=== PATIENT | male | born 1955 | race Caucasian/White ===

== ENCOUNTER 2017-05-09 18:56 | Emergency (ER) | payer BC ==
[2017-05-09 19:11] VITALS: TEMP 98.6; BMI 46.6
--- NOTE | 2017-05-09 19:27 | PDOC ---
History of Present Illness - General History Source: Patient Exam Limitations: No Limitations - History of Present Illness Initial Comments: 05/09/17 19:52 The patient is a 61 year old male with past medical history of hypertension, hyperlipidemia, diabetes, and Afib (on Xarelto), who presents to the ED with complaints of persistent cough for two weeks. The patient states that the cough began as dry, but today he began to spit up large sizes of white sputum. The patient complains of some congestion in his chest as well. He denies any shortness of breath or chest pain. While in the ED, the patients blood pressure was noted to be very high. He denies any fevers, chills, nausea, vomiting, diarrhea, or urinary symptoms. PCP: Bobby Almendarez Qa Software Tester: Rhianna Buck Stage Driver: Laureano Farr Strategic Account Manager: Levy Moffett <Aurora Redd - Last Filed: 05/09/17 19:51> <Rita Guy - Last Filed: 05/10/17 02:10> - General Chief Complaint: Shortness of Breath Stated Complaint: COUGH,SOB Time Seen by Provider: 05/09/17 19:24 Past History <Aurora Redd - Last Filed: 05/09/17 19:51> - Past Medical History Anemia: No Asthma: No Cancer: No Cardiac Disorders: Yes (ATRIAL FIBRILLATION) CVA: No COPD: No CHF: No Dementia: No Diabetes: Yes GI Disorders: No Disorders: No HTN: Yes Hypercholesterolemia: Yes Liver Disease: Yes (HEMACHROMATOSIS) Seizures: No Thyroid Disease: No - Surgical History Abdominal Surgery: No Appendectomy: No Cardiac Surgery: Yes (PACEMAKER IMPLANTED) Cholecystectomy: No Lung Surgery: No Neurologic Surgery: No Orthopedic Surgery: No - Psycho/Social/Smoking Cessation Hx Anxiety: No Suicidal Ideation: No Smoking History: Never smoked Have you smoked in the past 12 months: No Information on smoking cessation initiated: No Hx Alcohol Use: No Drug/Substance Use Hx: No Substance Use Type: Alcohol Hx Substance Use Treatment: No <Rita Guy - Last Filed: 05/10/17 02:10> - Past Medical History Allergies/Adverse Reactions: Allergies Allergy/AdvReac Type Severity Reaction Status Date / Time codeine [Codeine] AdvReac Intermediate Vomiting Verified 07/06/16 02:19 HORSE SERUM Allergy Unknown Uncoded 03/20/14 08:01 Home Medications: Ambulatory Orders Atorvastatin Ca [Lipitor -] 40 mg PO HS 03/20/14 Glimepiride 2 mg PO DAILY 03/20/14 Metoprolol Succinate [Toprol Xl] 100 mg PO DAILY 03/20/14 Rivaroxaban [Xarelto -] 20 mg PO DAILY 03/20/14 Valsartan [Diovan] 80 mg PO DAILY 03/20/14 Venlafaxine HCl ER [Effexor Xr -] 75 mg PO DAILY 03/20/14 Liraglutide [Victoza -] 1.8 mg SQ DAILY@0700 05/09/17 Metoprolol Succinate [Toprol Xl] 50 mg PO HS 05/09/17 Review of Systems - Review of Systems Able to Perform ROS?: Yes Comments:: 05/09/17 19:52 CONSTITUTIONAL: Absent: fever, chills, diaphoresis, generalized weakness, malaise, loss of appetite HEENT: Absent: rhinorrhea, nasal congestion, throat pain, throat swelling, difficulty swallowing, mouth swelling, ear pain, eye pain, visual Changes CARDIOVASCULAR: Absent: chest pain, syncope, palpitations, irregular heart rate, lightheadedness , peripheral edema RESPIRATORY: Present: cough, chest congestion Absent: dyspnea with exertion, orthopnea, wheezing, stridor, hemoptysis GASTROINTESTINAL: Absent: abdominal pain, abdominal distension, nausea, vomiting, diarrhea, constipation, melena, hematochezia GENITOURINARY: Absent: dysuria, frequency, urgency, hesitancy, hematuria, flank pain, genital pain MUSCULOSKELETAL: Absent: myalgia, arthralgia, joint swelling SKIN: Absent: rash, itching, pallor HEMATOLOGIC/IMMUNOLOGIC: Absent: easy bleeding, easy bruising, lymphadenopathy, frequent infections ENDOCRINE: Absent: unexplained weight gain, unexplained weight loss, heat intolerance, cold intolerance NEUROLOGIC: Absent: headache, focal weakness or paresthesias, dizziness, unsteady gait, seizure, mental status changes, bladder or bowel incontinence PSYCHIATRIC: Absent: anxiety, depression, suicidal or homicidal ideation, hallucinations. All Other Systems: Reviewed and Negative <Aurora Redd - Last Filed: 05/09/17 19:51> *Physical Exam - Vital Signs Last Vital Signs Temp Pulse Resp BP Pulse Ox 98.6 F 99 H 22 194/116 98 05/09/17 18:56 05/09/17 18:56 05/09/17 18:56 05/09/17 18:56 05/09/17 18:56 - Physical Exam Comments: 05/09/17 19:56 GENERAL: Morbidly obese. Awake and alert. No acute distress. HEENT: Normocephalic, atraumatic. PERRLA, EOMI. No conjunctival pallor. Sclera are non- icteric. Moist mucous membranes. Oropharynx is clear. NECK: Supple. Full ROM. No JVD. Carotid pulses 2+ and symmetric, without bruits. No thyromegaly. No lymphadenopathy. CARDIOVASCULAR: Regular rate and rhythm. No murmurs, rubs, or gallops. Distal pulses are 2+ and symmetric. PULMONARY: No evidence of respiratory distress. Lungs clear to auscultation bilaterally. No wheezing, rales or rhonchi. ABDOMINAL: Soft. Non-tender. Non-distended. No rebound or guarding. No organomegaly. Normoactive bowel sounds. MUSCULOSKELETAL Normal range of motion at all joints. No bony deformities or tenderness. No CVA tenderness. EXTREMITIES: No cyanosis. No clubbing. No edema. No calf tenderness. SKIN: Warm and dry. Normal capillary refill. No rashes. No jaundice. NEUROLOGICAL: Alert, awake, appropriate. Cranial nerves 2-12 intact. No deficits to light touch and temperature in face, upper extremities and lower extremities. No motor deficits in the in face, upper extremities and lower extremities. Normoreflexic in the upper and lower extremities. Normal speech. Toes are down-going bilaterally. Gait is normal without ataxia. PSYCHIATRIC: Cooperative. Good eye contact. Appropriate mood and affect. <Aurora Redd - Last Filed: 05/09/17 19:51> - Vital Signs Last Vital Signs Temp Pulse Resp BP Pulse Ox 98.6 F 99 H 22 194/116 98 05/09/17 18:56 05/09/17 18:56 05/09/17 18:56 05/09/17 18:56 05/09/17 18:56 <Rita Guy - Last Filed: 05/10/17 02:10> Heart Score/ECG Review - ECG Intrepretation Comment:: 05/09/17 19:57 ECG obtained at 19:55 Undetermined rhythm, 127 bpm <Aurora Redd - Last Filed: 05/09/17 19:51> ED Treatment Course - Medications Given in the ED: ED Medications Discontinued Medications Generic Name Dose Route Start Last Admin Trade Name Ridge PRN Reason Stop Dose Admin Metoprolol Succinate 100 mg 05/09/17 19:39 05/09/17 19:49 Toprol Xl - PO 05/09/17 19:40 100 mg ONCE ONE Administration Nitroglycerin 0.8 mg 05/09/17 19:40 05/09/17 19:42 Nitrostat - SL 05/09/17 19:41 0.8 mg ONCE ONE Administration <Aurora Redd - Last Filed: 05/09/17 19:51> - LABORATORY CBC & Chemistry Diagram: 05/09/17 20:00 05/09/17 20:00 - RADIOLOGY Radiology Studies Ordered: Category Date Time Status CHEST PA & LAT [RAD] Stat Radiology 05/09/17 19:24 Ordered <Rita Guy - Last Filed: 05/10/17 02:10> Medical Decision Making - Medical Decision Making 05/09/17 20:19 Pt is morbidly obese and comes in with HTN and chest tightness. He tells me that he has cough and caught a cold from his girlfriend's grandchild. Pt took mucinex and he coughed up white sputum, quarter sized and felt better today. Pt states that today while he was walking around he developed chest tightness MSCP. Pt has angina. He has a hx of afib and he is in rapid afib at this time with pacemaker spikes on EKG. 05/10/17 02:03 I spoke to Pt's ball point splitter Chika's partner Dr. Jenkins, who knows patient and agrees that he may be followed as an outpatient and asks that pt calls the office on Thursday to make an appointment for or Thu. He feels that pt's pain may be due to the increased BP and the exertion. We discussed the potential need for pt to have a cardiac cath. Pt is feeling better and his vitals are improved and his labs are normal, except for elevated glucose and cpk of 300s. <Rita Guy - Last Filed: 05/10/17 02:10> *DC/Admit/Observation/Transfer - Attestations Scribe Attestion: 05/09/17 19:57 Documentation prepared by Aurora Redd, acting as medical cash poster for Rita Guy MD. <Aurora Redd - Last Filed: 05/09/17 19:51> - Discharge Dispostion Admit: No <Rita Guy - Last Filed: 05/10/17 02:10> Diagnosis at time of Disposition: Angina of effort, Atrial fibrillation, rapid - Discharge Dispostion Disposition: HOME Condition at time of disposition: Improved - Referrals Referrals: Laureano Farr MD [Staff Physician] - - Patient Instructions Printed Discharge Instructions: DI for Angina, DI for Atrial Fibrillation, DI for Cardiac Catheterization Additional Instructions: CALL MOBILITY ENGINEER ON THURSDAY
[2017-05-09] MEDS ORDERED: METOPROLOL SUCCINATE 50 MG TAB.SR.24H (FP) PO ONE (19:39)
[2017-05-09] MEDS ORDERED: NITROGLYCERIN SUBLINGUAL 1/150 0.4 MG TAB SL ONE (19:40)
[2017-05-09] MEDS ORDERED: METOPROLOL SUCCINATE 50 MG TAB.SR.24H (FP) ONE (19:46)
[2017-05-09 19:55] LABS: PH,URINE 5.5 (4.5-8); URINE APPEARANCE Clear; URINE BILIRUBIN Negative (NEGATIVE); URINE BLOOD Negative (NEGATIVE); URINE COLOR YELLOW; URINE GLUCOSE (UA) 2+ (NEGATIVE); URINE KETONE Negative (NEGATIVE); URINE LEUK ESTERASE Negative (NEGATIVE); URINE NITRITE Negative (NEGATIVE); URINE PROTEIN 1+ (NEGATIVE); URINE UROBILINOGEN 0.2 (0.2-1.0)
[2017-05-09 20:20] LABS: BASOPHIL 0.8 % (0-2.0); MCH 33.1 pg (25.7-33.7); MCHC 34.9 g/dl (32.0-35.9); MEAN CELL VOLUME 94.8 fl (80-96); MEAN PLT VOLUME 9.2 fl (7.5-11.1); NEUTROPHILS 61.3 % (42.8-82.8); PLATELET COUNT 216 K/MM3 (134-434); RDW 12.4 % (11.9-15.9); WHITE BLOOD COUNT 10.1 K/mm3 (4.0-10.8)
[2017-05-09 20:22] VITALS: BP 126/83; PULSE 109
[2017-05-09 20:31] LABS: ALBUMIN 4.3 g/dl (3.5-5.0); ALK PHOS 122 U/L (32-92); ANION GAP 9 (8-16); BILIRUBIN,TOTAL 0.5 mg/dl (0.2-1.0); CALCIUM 9.3 mg/dl (8.4-10.2); CO2 25 mmol/L (22-28); SGOT/AST 26 U/L (10-42); SGPT/ALT 38 U/L (10-40); TOT PROT 7.3 g/dl (6.4-8.3)
[2017-05-09 20:33] LABS: GLUCOSE,RANDOM 305 mg/dl (74-106)
[2017-05-09 20:34] LABS: CPK 313 IU/L (39-308)
[2017-05-09 20:38] LABS: TROPONIN I (DFP) < 0.03 ng/ml (0.03-0.50)
[2017-05-09 20:40] LABS: URINE RBC 0-1 /hpf (0-3); URINE WBC NONE SEEN (3-5)
--- NOTE | 2017-05-12 10:31 | EKG ---
Test Reason : Blood Pressure : / mmHG Vent. Rate : 127 BPM Atrial Rate : 136 BPM P-R Int : 000 ms QRS Dur : 092 ms QT Int : 350 ms P-R-T Axes : 000 047 003 degrees QTc Int : 508 ms Demand V pacing Underlying afib WHEN COMPARED WITH ECG OF 25-SEP-2008 13:03, More pacing Confirmed by MD MENDOZA MARJORY ([id number]) on 05/12/2017 10:31:29 AM Referred By: SLOANE Confirmed By:CHRISTINA MENDOZA MD
== END 2017-05-09 21:40 | disposition home or self-care (01) ==
LOC: FER 18:56
DX: I48.91 Unspecified atrial fibrillation (principal); I20.8 Other forms of angina pectoris; I10 Essential (primary) hypertension; E78.5 Hyperlipidemia, unspecified; E11.9 Type 2 diabetes mellitus without complications; Z79.01 Long term (current) use of anticoagulants; Z75.0 Medical services not available in home; Z88.6 Allergy status to analgesic agent; Z79.84 Long term (current) use of oral hypoglycemic drugs
CPT/HCPCS: 36415; 71020-TC; 80053; 81003; 81015; 82553; 84484; 85025; 93005; 99283-25

== ENCOUNTER 2018-03-21 06:51 | Emergency (ER) | payer BC ==
[2018-03-21 07:01] VITALS: BP 154/84; PULSE 94; TEMP 98.9; BMI 46.6
[2018-03-21] MEDS ORDERED: ALBUTEROL SO4 2.5/IPRATROPIUM 0.5 INH SOL 3 ML VIAL.NEB. NEB ONE ×3 (07:12→08:14)
--- NOTE | 2018-03-21 07:25 | PDOC ---
History of Present Illness - General Chief Complaint: Respiratory Stated Complaint: COUGH/SINUS CONGESTION Time Seen by Provider: 03/21/18 07:19 History Source: Patient Exam Limitations: No Limitations - History of Present Illness Initial Comments: 03/21/18 07:22 62 yo M h/o htn ,afib DM , pacemaker, obesity with prior wheezing/ ? asthma ( no tobacco history) here today c/o one week of cough, congestion sob and nasal congestion. feels facial sinus pressure. pt was seen by his pcp 1 week ago and started on cefdnir, finished one week, now still feels sob. pt states wheezing sob is worse with hot air exposure and weather changes. no re recent steroids or bronchodilators. not using a nasal steroid at all. no f/c no n/v no chest pain. no leg swelling. 03/21/18 07:45 03/21/18 07:57 Past History - Past Medical History Allergies/Adverse Reactions: Allergies Allergy/AdvReac Type Severity Reaction Status Date / Time codeine [Codeine] AdvReac Intermediate Vomiting Verified 03/05/16 02:19 HORSE SERUM Allergy Unknown Uncoded 03/20/14 08:01 Home Medications: Ambulatory Orders Atorvastatin Ca [Lipitor -] 40 mg PO HS 03/20/14 Glimepiride 4 mg PO DAILY 03/20/14 Metoprolol Succinate [Toprol Xl] 100 mg PO DAILY 03/20/14 Rivaroxaban [Xarelto -] 20 mg PO HS 03/20/14 Valsartan [Diovan] 80 mg PO DAILY 03/20/14 Venlafaxine HCl ER [Effexor Xr -] 75 mg PO DAILY 03/20/14 Liraglutide [Victoza -] 1.8 mg SQ DAILY@0700 05/09/17 Metoprolol Succinate [Toprol Xl] 100 mg PO HS 05/09/17 Albuterol Sulfate Inhaler - [Ventolin HFA Inhaler -] 2 inh PO Q4H PRN #1 inh Cefuroxime Axetil [Ceftin -] 500 mg PO Q12H 03/21/18 Fluticasone Prop 0.05% Nasal [Flonase -] 1 spray NS DAILY #1 bot MDD 1 03/21/18 Metformin HCl [Metformin HCl ER] 1,000 mg PO HS 03/21/18 Ranolazine [Ranexa] 500 mg PO BID 03/21/18 Anemia: No Asthma: No Cancer: No Cardiac Disorders: Yes (ATRIAL FIBRILLATION) CVA: No COPD: No CHF: No Dementia: No Diabetes: Yes GI Disorders: No Disorders: No HTN: Yes Hypercholesterolemia: Yes Liver Disease: Yes (HEMACHROMATOSIS) Seizures: No Thyroid Disease: No - Surgical History Abdominal Surgery: No Appendectomy: No Cardiac Surgery: Yes (PACEMAKER IMPLANTED) Cholecystectomy: No Lung Surgery: No Neurologic Surgery: No Orthopedic Surgery: No - Suicide/Smoking/Psychosocial Hx Smoking History: Never smoked Have you smoked in the past 12 months: No Hx Alcohol Use: No Drug/Substance Use Hx: No Substance Use Type: Alcohol Hx Substance Use Treatment: No Review of Systems - Review of Systems Constitutional: No: Chills, Diaphoresis, Fever Respiratory: Yes: Cough, Shortness of Breath, Wheezing Cardiac (ROS): No: Chest Pain : No: Burning, Dysuria Musculoskeletal: No: Back Pain, Gout, Joint Pain Integumentary: No: Bruising, Change in Color Neurological: No: Headache Endocrine: No: Excessive Sweating All Other Systems: Reviewed and Negative *Physical Exam - Vital Signs Last Vital Signs Temp Pulse Resp BP Pulse Ox 98.9 F 94 H 16 154/84 96 03/21/18 06:55 03/21/18 06:55 03/21/18 06:55 03/21/18 06:55 03/21/18 06:55 - Physical Exam General Appearance: Yes: Nourished HEENT: positive: Normal Voice, Other (nasal congestion. boggy mucousa turbinate inflammation). negative: Tonsillar Exudate, Tonsillar Erythema Neck: positive: Trachea midline Respiratory/Chest: positive: Wheezing (bilateral wheezing faint, normal air flow. normal effort) Cardiovascular: positive: Regular Rhythm, Regular Rate, S1, S2 Gastrointestinal/Abdominal: positive: Normal Bowel Sounds, Flat. negative: Increased Bowel Sounds Musculoskeletal: positive: Normal Inspection. negative: CVA Tenderness Extremity: positive: Normal Capillary Refill, Normal Inspection, Normal Range of Motion Integumentary: positive: Normal Color, Dry, Warm Neurologic: positive: Fully Oriented, Alert, Normal Mood/Affect Heart Score/ECG Review #1 General ECG Interpretation: Normal Rate (96), Normal Intervals, No acute ischemic changes (TWI III only) Compared to previous ECG there are: Other (atrial fibrillation) Medical Decision Making - Medical Decision Making 03/21/18 07:26 62-year-old male with shortness of breath nasal congestion sinus pressure and bronchospasm. Likely related to ALLERGIC bronchospasm and rhinitis/sinusitis. Patient is already taking antibiotics. We'll likely treat with bronchodilators and possible steroids as well as inhaled nasal steroids just Flonase or Rhinocort recommend ALLERGY medication such as Claritin or Zyrtec patient taking will repeat chest x-ray to rule out any complications from prior pneumonia such as effusion or other pulmonary process screening EKG 03/21/18 07:45 CXR with increased bronchial markings. no infiltrate. comparison 08/2017. given neb, pt improved. allison dc with nebs, steroids, and pulmonary followup. 03/21/18 07:58 pt feels much improved following neb. has had high running sugars in am recently. therefore will hold on oral steroids. told to followup with dr. Ernst. was given number for [place] hand dr. Espinal, will serena to followup. per pt , has recently had a clean cath one year ago no h/o leg swelling or cad. *DC/Admit/Observation/Transfer Diagnosis at time of Disposition: Allergic rhinitis, Bronchitis - Discharge Dispostion Condition at time of disposition: Improved - Prescriptions Prescriptions: Albuterol Sulfate Inhaler - [Ventolin HFA Inhaler -] 2 inh PO Q4H PRN #1 inh PRN Reason: Wheezing - Referrals Referrals: Bobby Almendarez MD [Staff Physician] - - Patient Instructions Printed Discharge Instructions: DI for Acute Bronchitis, Sinusitis Additional Instructions: use flonase spray intranasally daily to help with sinus pressure and fullness. you can take zyrtec 5mg or claritin 5mg to help with allergic triggers. you should also use albuterol inhaler 2 puffs every 4 hours as needed for wheezing or cough. return for fever, vomiting. worsening shortness of breath or any concerns,. follow up with your regular doctor. call to schedule. - Post Discharge Activity
--- NOTE | 2018-03-24 13:02 | EKG ---
Test Reason : Blood Pressure : / mmHG Vent. Rate : 096 BPM Atrial Rate : 098 BPM P-R Int : 000 ms QRS Dur : 096 ms QT Int : 362 ms P-R-T Axes : 000 055 006 degrees QTc Int : 457 ms ATRIAL FIBRILLATION WITH FREQUENT ventricular-paced complexes ABNORMAL ECG Confirmed by CODEY COBIAN MD ([id number]) on 03/24/2018 1:02:21 PM Referred By: MD MENESES Confirmed By:CODEY COBIAN MD
== END 2018-03-21 08:50 | disposition home or self-care (01) ==
LOC: SUPCPDRO 06:51 → FER 06:51
PROC: 3E0F7GC Introduction of Other Therapeutic Substance into Respiratory Tract, Via Natural or Artificial Opening (ICD-10-PCS; principal; 2018-03-21)
DX: J30.2 Other seasonal allergic rhinitis (principal); J40 Bronchitis, not specified as acute or chronic; I48.91 Unspecified atrial fibrillation; Z95.0 Presence of cardiac pacemaker; E11.9 Type 2 diabetes mellitus without complications; I10 Essential (primary) hypertension; E66.9 Obesity, unspecified
CPT/HCPCS: 71046-TC-FY; 93005; 99281-25; J7620

== ENCOUNTER 2018-08-06 18:19 | Emergency (ER) | payer BC ==
[2018-08-06 18:25] VITALS: BP 110/73; PULSE 74; TEMP 99; BMI 46.9
[2018-08-06] MEDS ORDERED: TETRACAINE 0.5% OPHTH SOLN 2 ML BOTTLE ONE (18:29)
[2018-08-06] MEDS ORDERED: FLUORESCEIN NA 1 EA STRIP ONE (18:29)
[2018-08-06] MEDS ORDERED: BACITRACIN 3.5 GM OPTHALMIC OINT TUBE OD SCH (18:45)
--- NOTE | 2018-08-06 18:50 | PDOC ---
History of Present Illness - General Chief Complaint: Eye Problem Stated Complaint: RT EYE DISCOMFORT Time Seen by Provider: 08/06/18 18:21 History Source: Patient Exam Limitations: No Limitations - History of Present Illness Initial Comments: 08/06/18 18:57 The patient is a 62 year old male with a past medical history of HTN, HLD, diabetes, and afib (on xarelto) here today for evaluation of right eye pain today. The patient reports that his pain began today after putting in ceiling tiles in the office. He reports his eye pain is stabbing in quality and has rubbed his eye repeatedly to relief, where there is a grainy sensation. Patient denies headache, lightheadedness. Denies fever, chills. Denies chest pain, shortness of breath. Denies blurry vision. Allergies: codeine, horse serum Surgical history: none reported PCP: Bobby Almendarez ROS: GENERAL/CONSTITUTIONAL: No fever or chills. No weakness. no sweats. HEAD, EYES, EARS, NOSE AND THROAT: +right eye pain. +grainy sensation. No change in vision or hearing. No ear pain or discharge. No sore throat or mouth pain. No difficulty swallowing. No congestion. SKIN: No rash or changes in skin color or lesions. NEUROLOGIC: No headache, dizziness, or change in strength/sensation. No gait instability. ALLERGIC/IMMUNOLOGIC: codeine, horse serum All other systems reviewed and negative, or as documented in HPI. Physical exam: General: Well appearing, awake and alert, NAD. HEENT: +increased tearing. NCAT, PERRL, EOMI, clear conjunctiva, anicteric, moist mucous membranes, clear oropharynx, no oral lesions 20/20 bilateral vision with corrective lenses. Right eye with ciliary injection , no purulence. Tetracaine applied, fluorescein staining applied, no uptake and neg Seidels sign. No FB visualized under lids. Neck: neck supple, FROM Resp: CTAB, normal and even respirations, no respiratory distress CVS: RRR, no murmurs, 2+ peripheral pulses throughout, no peripheral edema Neuro: alert, oriented appropriately; CN II-XII grossly intact. Skin: warm and well perfused, cap refill <2 sec, normal color Past History - Past Medical History Allergies/Adverse Reactions: Allergies Allergy/AdvReac Type Severity Reaction Status Date / Time codeine [Codeine] AdvReac Intermediate Vomiting Verified 08/06/18 18:20 HORSE SERUM Allergy Unknown Uncoded 08/06/18 18:20 Home Medications: Ambulatory Orders Atorvastatin Ca [Lipitor -] 40 mg PO HS 03/20/14 Metoprolol Succinate [Toprol Xl] 100 mg PO DAILY 03/20/14 Rivaroxaban [Xarelto -] 20 mg PO HS 03/20/14 Valsartan [Diovan] 80 mg PO DAILY 03/20/14 Venlafaxine HCl ER [Effexor Xr -] 75 mg PO DAILY 03/20/14 Metoprolol Succinate [Toprol Xl] 100 mg PO HS 05/09/17 Fluticasone Prop 0.05% Nasal [Flonase -] 1 spray NS DAILY #1 bot MDD 1 03/21/18 Metformin HCl [Metformin HCl ER] 1,000 mg PO BID 03/21/18 Bacitracin Ophthalmic Oint - 1 applic OD Q4H #1 tube 08/06/18 Dulaglutide [Trulicity] 1.5 mg SQ WEEKLY 08/06/18 Insulin Glargine,Hum.rec.anlog [Lantus] 40 unit SQ DAILY 08/06/18 Anemia: No Asthma: No Cancer: No Cardiac Disorders: Yes (ATRIAL FIBRILLATION) CVA: No COPD: No CHF: No Dementia: No Diabetes: Yes GI Disorders: No Disorders: No HTN: Yes Hypercholesterolemia: Yes Liver Disease: Yes (HEMACHROMATOSIS) Seizures: No Thyroid Disease: No - Surgical History Abdominal Surgery: No Appendectomy: No Cardiac Surgery: Yes (PACEMAKER IMPLANTED) Cholecystectomy: No Lung Surgery: No Neurologic Surgery: No Orthopedic Surgery: No - Suicide/Smoking/Psychosocial Hx Smoking History: Never smoked Have you smoked in the past 12 months: No Information on smoking cessation initiated: No Hx Alcohol Use: No Drug/Substance Use Hx: No Substance Use Type: Alcohol Hx Substance Use Treatment: No *Physical Exam - Vital Signs Last Vital Signs Temp Pulse Resp BP Pulse Ox 99 F 74 18 110/73 100 08/06/18 18:20 08/06/18 18:20 08/06/18 18:20 08/06/18 18:20 08/06/18 18:20 Moderate Sedation - Procedure Monitoring Vital Signs: Procedure Monitoring Vital Signs Temperature 99 F 08/06/18 18:20 Pulse Rate 74 08/06/18 18:20 Respiratory Rate 18 08/06/18 18:20 Blood Pressure 110/73 08/06/18 18:20 O2 Sat by Pulse Oximetry (%) 100 08/06/18 18:20 Medical Decision Making - Medical Decision Making 08/06/18 18:57 hpi as documented VS normal Ddx conjunctivitis likely allergic vs irritational; no s/s infection, however eye is red and has FB sensation Visual acuity intact. also fluroescein staining neg for uptake or gilda's sign DC with PCP and eye doctor appt Rx bacitracin ointment, artificial tears to maintain moisture. avoid triggers or rubbing of the eye. *DC/Admit/Observation/Transfer Diagnosis at time of Disposition: Conjunctivitis - Discharge Dispostion Disposition: HOME Condition at time of disposition: Stable - Prescriptions Prescriptions: Bacitracin Ophthalmic Oint - 1 applic OD Q4H #1 tube - Referrals Referrals: Bobby Almendarez MD [Primary Care Provider] - - Patient Instructions Printed Discharge Instructions: DI for Conjunctivitis Additional Instructions: you are to apply artificial tears to keep the eye moisturized. right eye bactracin topically every 4 hours x 5 days see your primary doctor and eye doctor, referrals provided avoid rubbing or touching the eyes to minimize the infection risk referrals provided for ophthalmology - Post Discharge Activity
== END 2018-08-06 19:05 | disposition home or self-care (01) ==
LOC: FER 18:19
DX: H10.9 Unspecified conjunctivitis (principal); Z95.0 Presence of cardiac pacemaker; I10 Essential (primary) hypertension; E11.9 Type 2 diabetes mellitus without complications; E78.00 Pure hypercholesterolemia, unspecified; E83.119 Hemochromatosis, unspecified; E78.5 Hyperlipidemia, unspecified; I48.91 Unspecified atrial fibrillation; Z79.01 Long term (current) use of anticoagulants
CPT/HCPCS: 99282-25

== ENCOUNTER 2020-09-01 20:01 | Emergency (ER) | payer BC ==
[2020-09-01 20:13] VITALS: BP 181/109; PULSE 97; TEMP 99.9; BMI 48.0
[2020-09-01] MEDS ORDERED: ACETAMINOPHEN 500 MG TABLET (FP) PO ONE (22:05)
[2020-09-01] MEDS ORDERED: ACETAMINOPHEN 500 MG TABLET (FP) ONE (22:10)
[2020-09-01 22:27] LABS: BASO % 0.9 % (0-2.0); HEMATOCRIT 41.9 % (35.4-49); HEMOGLOBIN 14.5 GM/dl (11.7-16.9); LYMPH % 11.3 % (8-40); MCH 33.7 pg (25.7-33.7); MCHC 34.7 g/dl (32.0-35.9); MEAN CELL VOLUME 97.1 fl (80-96); MEAN PLT VOLUME 8.5 fl (7.5-11.1); MONO % 4.5 % (3.8-10.2); NEUT % 80.3 % (42.8-82.8); PLATELET COUNT 215 K/MM3 (134-434); RBC 4.32 M/mm3 (4.00-5.60); RDW 12.2 % (11.9-15.9); WHITE BLOOD COUNT 12.9 K/mm3 (4.0-10.8)
[2020-09-01 22:53] LABS: ALBUMIN 4.3 g/dl (3.4-5.0); BILIRUBIN,TOTAL 1.1 mg/dl (0.2-1); CALCIUM 8.9 mg/dl (8.5-10); CREATININE 0.9 mg/dl (0.55-1.3); TOT PROT 7.3 g/dl (6.4-8.2)
[2020-09-02] MEDS ORDERED: AZITHROMYCIN 250 MG TABLET PO ONE (00:03)
[2020-09-02] MEDS ORDERED: AZITHROMYCIN 250 MG TABLET ONE (00:10)
== END 2020-09-02 00:16 | disposition home or self-care (01) ==
LOC: FER 20:01
DX: J18.1 Lobar pneumonia, unspecified organism (principal)
CPT/HCPCS: 36415; 71046-TC-FY; 80053; 82550; 82553; 84484; 85025; 93005; 99284-25; C9803; U0003